=== PATIENT | female | born 1950 | race Caucasian/White ===

== ENCOUNTER 2023-10-17 12:00 | Outpatient (CLI) | payer MEDICARE, MEDICAID, SELFPAY ==
--- NOTE | ~2023-10-17 | MR_ITS ---
MR breast BI wo/w con 10/17/2023 13:20 CDT INDICATION: Left breast mass. TECHNIQUE: MRI of the breasts perform using standard protocol pre-and post IV contrast with the follo wing sequences: Axial T2 STIR, axial T1, axial vibrant T1 with fat suppression precontrast and multip hasic postcontrast. 9 Cc MultiHance administered intravenously. COMPARISON: Mammogram dated 09/05/2023 FINDINGS: There are no abnormalities on the precontrast sequences. There is minimal background parenc hymal enhancement. No enhancing lesions following contrast administration. No areas of enhancement meeting threshold criteria on CAD analysis. No evidence of signal abnormalities in the axillary or i nternal mammary node distributions. LEFT BREAST: Precontrast sequence demonstrates a mass in the left breast which is encapsulated and is ointense to fat measuring 9.3 x 4.8 cm greatest dimension on axial sequences. There is minimal backgr ound parenchymal enhancement. No enhancing lesions following contrast administration. No areas of enhancement meeting threshold criteria on CAD analysis. No evidence of signal abnormalities in the axillary or internal mammary node distributions. IMPRESSION: 1: Right breast: Negative. No evidence of malignancy. BI-RADS category 1. Recommend annual mammo graphy follow-up. 2: Left breast: Large left breast mass measuring up to 9.3 cm which is isointense to fat with no dem onstrable internal enhancement, consistent with benign lipoma. BI-RADS Category 2. Routine yearly scr eening mammogram and regular clinical breast examination are recommended. Consider surgical evaluati on for excision as clinically warranted. Reviewed, dictated and finalized at location B. IMPRESSION: 1: Right breast: Negative. No evidence of malignancy. BI-RADS category 1. Recommend annual mammography follow-up. 2: Left breast: Large left breast mass measuring up to 9.3 cm which is isointe nse to fat with no demonstrable internal enhancement, consistent with benign li sammy. BI-RADS Category 2. Routine yearly screening mammogram and regular clinic al breast examination are recommended. Consider surgical evaluation for excisi on as clinically warranted.
== END 2023-10-17 12:01 | disposition home or self-care (01) ==
PROVIDERS: PCP Nurse Practitioner Family; Visit Provider Surgery
DX: R92.8 Other abnormal and inconclusive findings on diagnostic imaging of breast (principal); N63.20 Unspecified lump in the left breast, unspecified quadrant
CPT/HCPCS: 77049; A9577; C8908